=== PATIENT | male | born 1970 | race Caucasian/White ===

== ENCOUNTER 2020-09-29 13:15 | Emergency (ER) | payer OTHER ==
--- NOTE | 2020-09-29 13:51 | EDM.PDOC ---
ED HPI GENERAL MEDICAL PROBLEM - General Chief Complaint: Laceration Stated Complaint: ER Time Seen by Provider: 09/29/20 13:35 Source of Information: Reports: Patient History Limitations: Reports: No Limitations - History of Present Illness INITIAL COMMENTS - FREE TEXT/NARRATIVE: Was trying to put up garage door and was winding the spring and it got away and the set screws dug into the left forearm and dug in for several rotations and he has irregular mangled looking muscle to the left forearm that is exposed. He has normal range of motion to the wrist and with flexion are able to see the muscles move in the laceration. good pulse noted distally to the laceration. States that the 4-5 fingers feel tingling and feel numb. Pain 4/10 with increase pressure. He has ROM to the fingers. Onset: Today Location: Reports: Upper Extremity, Left Quality: Reports: Pressure, Throbbing Associated Symptoms: Reports: No Other Symptoms - Related Data Allergies Allergy/AdvReac Type Severity Reaction Status Date / Time No Known Allergies Allergy Verified 09/29/20 13:37 Home Meds: Home Meds Albuterol [Proventil HFA] 1 puff INH ASDIRECTED PRN 09/29/20 [History] Budesonide [Pulmicort Flexhaler] 2 puff INH DAILY 09/29/20 [History] Montelukast [Singulair] 10 mg PO DAILY 09/29/20 [History] Past Medical History - Past Surgical History Musculoskeletal Surgical History: Reports: Arthroscopic Knee Social & Family History - Tobacco Use Tobacco Use Status *Q: Never Tobacco User - Living Situation & Occupation Living situation: Reports: , with Spouse Occupation: Employed ED ROS GENERAL - Review of Systems Review Of Systems: See Below Constitutional: Denies: Fever, Chills Respiratory: Reports: No Symptoms Cardiovascular: Reports: No Symptoms Musculoskeletal: Reports: Arm Pain (left forearm) Skin: Reports: Wound (left forearm.) Neurological: Reports: Tingling (to the 4-5th fingers of left hand.) ED EXAM, SKIN/RASH Exam: See Below Exam Limited By: No Limitations General Appearance: Alert, WD/WN, Moderate Distress Head: Atraumatic, Normocephalic Neck: Normal Inspection, Supple, Non-Tender Respiratory/Chest: No Respiratory Distress, Lungs Clear, Normal Breath Sounds Cardiovascular: Regular Rate, Rhythm GI/Abdominal: Normal Bowel Sounds, Soft, Non-Tender Neurological: Alert, Oriented Skin: Warm, Dry, Wound/Incision (large laceration to the left forearm. Has exposed muscle noted and movement noted with flexion of the wrist. He has decreased sensation to the 4-5th fingers. Good sensation to the 1-3rd digits. Has full ROM noted. ) ED SKIN PROCEDURES - Laceration/Wound Repair Left Middle Arm Appearance: Muscle, Irregular, Mildly Contaminated Distal NVT: Other (numbness and tingling to the 4-5 th digits of the left hand.) Anesthetic Type: Local Local Anesthesia - Lidocaine (Xylocaine): 1% Plain Local Anesthetic Volume: Other (10 ml) Skin Prep: Saline Saline Irrigation (cc's): 250 Closed with: Sutures Lac/Wound length In cm: 11 (wound was 11 cm by 3.5 cm in "Y" shape.) Suture Size: 4-0 Suture Type: Nylon, Interrupted, Simple Tetanus Status Addressed: Yes Course - Vital Signs Last Recorded V/S: Last Vital Signs Temp 98.9 F 09/29/20 13:25 Pulse 89 09/29/20 13:25 Resp 16 09/29/20 13:25 BP 176/107 H 09/29/20 13:25 Pulse Ox 97 09/29/20 13:25 - Orders/Labs/Meds Meds: Medications Discontinued Medications Generic Name Dose Route Start Last Admin Trade Name Anthonyq PRN Reason Stop Dose Admin Cefazolin Sodium 2 gm 09/29/20 14:15 09/29/20 14:33 Ancef IVPUSH 09/29/20 14:16 2 gm ONETIME ONE Administration Diphenhydramine HCl 50 mg 09/29/20 15:21 09/29/20 15:27 Benadryl IVPUSH 09/29/20 15:22 50 mg ONETIME ONE Administration Diphtheria/Tetanus/Acell Pertussis 0.5 ml 09/29/20 15:16 09/29/20 15:26 Adacel IM 09/29/20 15:17 0.5 ml .ONCE ONE Administration Hydromorphone HCl 2 mg 09/29/20 13:51 09/29/20 14:04 Dilaudid IVPUSH 09/29/20 13:52 2 mg ONETIME ONE Administration Lidocaine HCl 5 ml 09/29/20 14:43 09/29/20 15:06 Xylocaine-Mpf 1% INJECT 09/29/20 14:44 5 ml ONETIME ONE Administration Lidocaine HCl 5 ml 09/29/20 14:47 09/29/20 15:06 Xylocaine-Mpf 1% INJECT 09/29/20 14:48 5 ml ONETIME ONE Administration - Re-Assessments/Exams Free Text/Narrative Re-Assessment/Exam: 09/29/20 1403- Contacted [facility] and they are on diversion as they are full. 1404- contacted 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 concern is for the numbness and tingling in the 4-5 th digits. He did recommend that I loosely close the wound and they give him 2 gm of Ancef, Tdap and start on cephalexin and then he would have his staff contact him and be [facility] and evaluate it at that time. Pt is in agreement of this. Departure - Departure Time of Disposition: 15:23 Disposition: Home, Self-Care 01 Clinical Impression: Laceration - Discharge Information *PRESCRIPTION DRUG MONITORING PROGRAM REVIEWED*: Not Applicable *COPY OF PRESCRIPTION DRUG MONITORING REPORT IN PATIENT CADY: Not Applicable Referrals: PCP,Unknown [Primary Care Provider] - Forms: ED Department Discharge Additional Instructions: Someone from Dr. Morgan's office will call and set up appt for you tomorrow in [place]. Keep dressing on until seen in [place] cephalexin 500 mg bid for 10 days do not use the left arm until seen by Dr. Morgan. [place] take 1 every 6 hours as needed for pain Sepsis Event Note (ED) - Evaluation Sepsis Screening Result: No Definite Risk - Problem List & Annotations (1) Laceration SNOMED Code(s): 019864653 Code(s): QUX0851 - Status: Acute - Problem List Review Problem List Initiated/Reviewed/Updated: Yes
[2020-09-29] MEDS: HYDROmorphone 1 MG/ML Syringe IVPUSH ONE (14:04)
[2020-09-29] MEDS: ceFAZolin 1 GM Vial IVPUSH ONE (14:33)
[2020-09-29] MEDS: Diphtheria,Pertussis(Acell),Tetanus Vaccine 0.5 ML Syringe IM ONE (15:26)
[2020-09-29] MEDS: diphenhydrAMINE 50 MG/ML SDV IVPUSH ONE (15:27)
== END 2020-09-29 15:55 | disposition home or self-care (01) ==
LOC: CC.ED 13:15
DX: S51.812A Laceration without foreign body of left forearm, initial encounter (principal); Z79.899 Other long term (current) drug therapy; Z23 Encounter for immunization; W26.8XXA Contact with other sharp object(s), not elsewhere classified, initial encounter
CPT/HCPCS: 12005; 73090; 90471; 90715; 96374; 96375; 99283; J0690; J1170; J1200; J2001